=== PATIENT | female | born 1955 | race Caucasian/White ===

== ENCOUNTER → 2020-03-10 07:36 | Outpatient (CLI) | payer BC, SELFPAY ==
--- NOTE | 2020-03-10 | DI.MRI.S_ITS ---
PROCEDURE: MR LUMBAR SPINE WO/W CON INDICATIONS: Other intervertebral disc degeneration, lumbosacral region TECHNIQUE: Noncontrast sagittal T1 spin echo and T2 fast spin echo, sagittal STIR, axial T1 and T2 fast spin echo through the lumbar spine. In cases with scoliosis, additional coronal T2 fast spin echo may be performed. After the administration of contrast, sagittal and axial T1 spin echo with fat saturation through the lumbar spine. COMPARISON: [facility], MR, L-SPINE WITHOUT CONTRAST, 02/13/2013, 14:59. [facility], MR, L-SPINE WITHOUT CONTRAST, 12/31/2014, 11:20. [facility], MR, L-SPINE WITHOUT CONTRAST, 04/17/2017, 18:55. FINDINGS: Image quality: Excellent. Alignment and curvature: There is normal bony alignment. Marrow: Marrow is of normal overall signal. No acute vertebral body compression fractures. No suspicious marrow enhancement. Spinal cord: Conus medullaris terminates at the L1 level. Visualized spinal cord demonstrates normal signal, without suspicious enhancement. Paraspinous soft tissues: No paravertebral masses or abnormal enhancement. A 7 mm likely hemorrhagic cyst can be seen along the lateral aspect of the left kidney, without definite abnormal enhancement. Incidental note is made of a circumaortic left renal vein. T12-L1: Normal appearance. L1-L2: Normal appearance. L2-L3: No significant abnormality is seen. L3-L4: The disc height and disc signal are relatively well-preserved. Mild disc bulge is seen, with a mild central disc protrusion. There is mild to moderate right-sided and mild left-sided neural foraminal narrowing seen. When comparison is made with the prior examination, these findings are similar. L4-L5: The disc height is well-preserved. Loss of disc signal is seen at this level. Moderate generalized disc bulge is seen. Moderate facet joint hypertrophy is seen. There is at least moderate bilateral neural foraminal narrowing seen, right worse than left. There is a degree of compression seen upon the exiting nerve roots. Moderate central canal narrowing is seen. These imaging findings have progressed compared to the prior study. L5-S1: Moderate loss of disc height is seen. Loss of disc signal is seen. Reactive marrow endplate changes are seen, which are hyperintense on T1-weighted and T2-weighted imaging and most consistent with fatty metaplasia (Modic type II changes). Moderate disc bulge is seen, which is eccentric to the left. Mild to moderate facet hypertrophy is seen. Mild bilateral neural foraminal narrowing is seen. Minimal central canal narrowing is seen. Stable from the prior study. IMPRESSION: Lower lumbar spine degenerative changes are seen, which are mildly progressed at the L4-L5 level compared to 2017. Dictated by: Jef Lao M.D. on 03/10/2020 at 9:20 Approved by: Jef Lao M.D. on 03/10/2020 at 9:25
== END ==
PROVIDERS: PCP Specialist; Referring Provider Specialist; Visit Provider Specialist
DX: M51.37 Other intervertebral disc degeneration, lumbosacral region (principal); M47.816 Spondylosis without myelopathy or radiculopathy, lumbar region; M47.817 Spondylosis without myelopathy or radiculopathy, lumbosacral region
CPT/HCPCS: 72158; A9579

== ENCOUNTER 2021-02-06 10:37 | Day surgery (SDC) | payer BC, SELFPAY ==
--- NOTE | 2021-02-06 | PATH_ITS ---
[facility] Accession Number: [id number] . 01 Material submitted: . PART A: gastrointestinal site - RANDOM GASTRIC BIOPSIES PART B: esophagus, E-G Junction - GE JUNCTION BIOPSY . 01 Clinical history: . EGD/COLONOSCOPY . 02 Diagnosis: A. Random Stomach, Biopsies: Body-type mucosa with no diagnostic abnormality. Negative for Helicobacter organisms by immunohistochemistry. Negative for intestinal metaplasia. Negative for dysplasia or malignancy. . B. Gastroesophageal Junction, Biopsy: Squamous mucosa with no diagnostic abnormality. Intraepithelial eosinophils are not increased. A PAS stain is negative for fungal organisms. Negative for dysplasia and malignancy. [facility] 02/10/2021 1504 Local . 02 Electronically signed: . Lynn Sherwood MD, Pathologist NPI- [id number] . 01 Gross description: . Part A: RANDOM GASTRIC BIOPSIES: Received in formalin is 1 fragment(s) of malin, soft tissue measuring 0.2 x 0.2 x 0.2 cm submitted entirely in 1 cassette(s) Part B: GE JUNCTION BIOPSY: Received in formalin is 1 fragment(s) of malin, soft tissue measuring 0.2 x 0.2 x 0.1 cm submitted entirely in 1 cassette(s) /[facility] 02/07/2021 1906 Local . 02 Microscopic: . A. An immunohistochemical stain was performed to evaluate for Helicobacter organisms and is negative. The control stain showed appropriate reactivity. . B. An AB/PAS stain was performed to evaluate for intestinal metaplasia and fungal organisms, respectively. No columnar mucosa is identified in the initial levels and a PAS portion of the stain is negative for fungal organisms. The control stain showed appropriate reactivity. . . * This test was developed and its performance characteristics determined by [employer]. It has not been cleared or approved by the U.S. Food and Drug Administration. The FDA has determined that such clearance or approval is not necessary. This test is used for clinical purposes. It should not be regarded as investigational or for research. . 02 Pathologist provided ICD-10: D64.9 . 02 CPT . 552956, 107682, V59690, 827550 Performed at: [facility] [address] [id number] MD Luis Crockett MD Phone: [phone] Performed at: [address] [id number] MD Lynn Sherwood MD Phone: [phone]
[2021-02-06] MEDS: LACTATED RINGERS 1,000 ML 200 ML IV (10:58)
[2021-02-06 10:59] VITALS: BP 148/90; PULSE 68; RESP 16; TEMP 37.4; O2SAT 97; BMI 25.7
--- NOTE | 2021-02-06 11:37 | PM.PREOP ---
Pre-operative Note Interval Note History & Physical reviewed/Exam performed by Physician: Yes Changes to H&P: No
[2021-02-06] MEDS: LIDOCAINE 4% SOLN 50 ML 20 ML TOP (11:45)
[2021-02-06] MEDS: fentaNYL 250 MCG/5 ML INJ IV (11:46)
[2021-02-06] MEDS: MIDAZOLAM 5 MG/5 ML VIAL IV (11:47)
--- NOTE | 2021-02-06 12:27 | PM.OP.ENDO ---
Operative Date/Time/Diagnoses Date of procedure: 02/06/21 Time of procedure: 12:27 Pre-op diagnosis: Anemia Post-op diagnosis: same Procedure & Clinicians Study performed: Esophagoduodenoscopy Colonoscopy Same procedure as scheduled: Yes Indications: Anemia Surgeon: George Mcarthur Procedure Notes Procedure in detail: Medications: Conscious sedation using 6mg IV midazolam and 150mcg IV of fentanyl The history and physical was performed/updated and the patient is ASA class is *2. The procedure was discussed in detail with the patient. Potential risks complications including infection, bleeding, missed diagnosis, perforation, need for surgery, and were explained. Their questions were answered and informed consent was obtained. Patient was brought to the procedure room and placed standard monitoring equipment. The patient's vital signs were monitored continuously throughout the entire procedure. Prior to starting time-out was performed. The patient was placed in the left lateral recumbent position. Procedural sedation was administered. Patient placed in left lateral decubitus position. Time out was performed. Procedural sedation was administered with Versed and Fentanyl. A bite block was placed. the scope was inserted into the mouth and advanced through the esophagus and into the stomach. The pylorus was intubated and the duodenum was normal to the 2nd portion. The scope was retroflexed within the stomach and there was moderate hiatal hernia. MILD gastritis. The scope was withdrawn into the esophagus the Z line was seen at 40 cm from the incisions. There was inflamation at the GE junction biopsy biospy was taken. Stomach was desufflated and scope removed. Patient tolerated procedure well. Examination began with a thorough inspection of the perianal area there was no evidence of fissures, fistulae, external hemorrhoids or cutaneous malignancy. The colonoscopy scope was then placed into the anal canal and was advanced to the cecum, which was identified by the ileocecal valve, the appendiceal orifice and the confluence of the taenia. The scope was then slowly withdrawn examining colon thoroughly in all directions, irrigating it of any residual stool. No colonic masses or polyps Sigmoid diverticulosis The patient tolerated the procedure well. They will be discharged once criteria are met. The prep was of good/excellent quality. The withdrawl time was 7 minutes. The sedation time was 45 minutes. Specimen(s): other (gastric, GE junction) Complications: none Impression: gastitis, esophagitis Post-procedure Recommendations: Colonscopy in 10 years and Reflux diet Plan for aftercare: Omeprazole 40 mg BID Disposition: same day surgery
[2021-02-06 12:28] VITALS: BP 175/140; PULSE 60; RESP 13; TEMP 36.6; O2SAT 100
[2021-02-06 12:33] VITALS: BP 160/102; PULSE 68; RESP 17; O2SAT 99
[2021-02-06 12:38] VITALS: BP 159/99; PULSE 66; RESP 13; O2SAT 98
[2021-02-06 12:53] VITALS: BP 147/97; PULSE 64; RESP 13; O2SAT 98
== END 2021-02-06 13:04 | disposition home or self-care (01) ==
PROVIDERS: PCP Specialist; Referring Provider Surgery; Visit Provider Surgery
PROC: 0DJ08ZZ Inspection of Upper Intestinal Tract, Via Natural or Artificial Opening Endoscopic (ICD-10-PCS; CPT 43235; principal; 2021-02-06 11:30)
PROC: 0DJD8ZZ Inspection of Lower Intestinal Tract, Via Natural or Artificial Opening Endoscopic (ICD-10-PCS; CPT 45378; 2021-02-06 11:30)
DX: D64.9 Anemia, unspecified (principal); F10.20 Alcohol dependence, uncomplicated; K57.30 Diverticulosis of large intestine without perforation or abscess without bleeding; K29.50 Unspecified chronic gastritis without bleeding; K20.90 Esophagitis, unspecified without bleeding
CPT/HCPCS: 43239; 45378; 99152; 99153; J2250; J3010

== ENCOUNTER → 2022-12-10 11:03 | Outpatient (CLI) | payer BC, SELFPAY ==
--- NOTE | 2022-12-10 | DI.RAD.S_ITS ---
PROCEDURE: FL WRIST INJECTION MR/CT RT INDICATIONS: RIGHT WRIST PAIN COMPARISON: [facility], CR, XR WRIST 3+ VIEWS RIGHT, 11/22/2022, 17:15. [facility], WRIST INJECTION FOR MR/CT, 05/28/2011, 8:58. TECHNIQUE: After informed consent had been obtained, the wrist was examined fluoroscopically, and a site chosen for injection of the radiocarpal compartment from a dorsal approach. Skin was prepped and draped in a sterile fashion and 1% lidocaine infiltrated from the skin down to the articular surface. A hypodermic needle was then introduced into the articular space and a modest amount of contrast medium was instilled confirming intra-articular needle tip placement. This was followed by approximately 4 mL of a dilute gadolinium solution. Needle was removed and dressing was applied. The patient experienced no complications throughout the procedure and left the fluoroscopic suite in no apparent distress. FINDINGS: A single fluoroscopic spot image demonstrates intra-articular location to injected iodinated contrast. IMPRESSION: Successful fluoroscopic-guided administration of dilute Gadolinium solution for wrist MR arthrogram. Dictated by: David Sapp M.D. on 12/10/2022 at 12:18 Approved by: David Sapp M.D. on 12/10/2022 at 12:23
--- NOTE | 2022-12-10 | DI.MRI.S_ITS ---
PROCEDURE: MR WRIST RT W CON INDICATIONS: RIGHT WRIST PAIN TECHNIQUE: After the administration of 3-4 mL of dilute intra-articular Gadolinium contrast into the radiocarpal compartment, coronal T1 spin echo with fat saturation and T2 fast spin echo with fat saturation, axial T1 spin echo and T2 fast spin echo with fat saturation, sagittal T1 spin echo with and without fat saturation through the wrist. COMPARISON: [facility], CR, XR WRIST 3+ VIEWS RIGHT, 11/22/2022, 17:15. FINDINGS: Image quality: Excellent. Bones and cartilage: The carpal bones are normally aligned. No bone marrow contusions or fractures. No evidence for avascular necrosis. Wrist joint osteoarthritic changes are seen with joint space narrowing, subchondral sclerosis and cyst formation. Carpal ligaments: The scapholunate and lunotriquetral ligaments appear intact, without gadolinium extravasation into the mid-carpal compartment. The radioscaphocapitate and radiolunotriquetral ligaments appear intact. The arcuate ligament and short radiolunate ligament also appear normal. The dorsal intercarpal and radiotriquetral ligaments appear intact. On sagittal images, the pisohamate ligament appears intact. Triangular fibrocartilage complex: The triangular fibrocartilage disc, with its styloid and foveal lamina, appears intact. No gadolinium extravasation into the distal radioulnar joint. The adjacent meniscal homolog appears normal. The ulnar collateral ligament appears intact. The extensor carpi ulnaris tendon is normal in location and morphology. Tendons and soft tissues: The carpal tunnel structures appear normal, including the median nerve. The ulnar nerve appears normal within Guyon's canal. All six extensor tendon compartments demonstrate normal morphology, without pathologic tendon sheath fluid. No soft tissue ganglion cysts. IMPRESSION: 1. Right wrist joint osteoarthritis. No wrist fracture or dislocation. No evidence of avascular necrosis. 2. Intrinsic and extrinsic wrist ligaments are intact. No contrast is seen extravasation into mid-carpal compartment. 3. There is no evidence of triangular fibrocartilage tear. No contrast is seen extending into distal radial ulnar joint. 4. Extensor and flexor tendons are within normal limits. Dictated by: Matthew Gee M.D. on 12/10/2022 at 14:49 Approved by: Matthew Gee M.D. on 12/10/2022 at 14:57
== END ==
PROVIDERS: PCP Specialist; Referring Provider Orthopaedic Surgery; Visit Provider Orthopaedic Surgery
DX: S66.91 Strain of unspecified muscle, fascia and tendon at wrist and hand level (principal); M19.031 Primary osteoarthritis, right wrist
CPT/HCPCS: 20605; 73222; 77002

== ENCOUNTER → 2023-01-30 08:43 | Outpatient (CLI) | payer BC, SELFPAY ==
--- NOTE | 2023-01-30 | DI.MRI.S_ITS ---
PROCEDURE: MR KNEE RT WO CON INDICATIONS: Other tear of lateral meniscus, current injury, right knee TECHNIQUE: Noncontrast sagittal PD fast spin echo and T2 fast spin echo with fat saturation, sagittal 3-D FLASH with fat saturation; coronal T1 spin echo and PD fast spin echo with fat saturation, and axial PD fast spin echo with fat saturation through the knee. COMPARISON: [facility], CR, XR KNEE ARTHRITIC SERIES BI, 01/11/2023, 8:47. FINDINGS: Image quality: Good Menisci: Medial: Intact. Meniscocapusular junction maintained. Lateral: Horizontal tear of the mid body and anterior horn of the lateral meniscus, almost extending to the anterior root. Cruciate ligaments: Intact Medial structures: MCL: Intact Pes anserine tendons: Suspected ganglion cyst adjacent to the semi tendinosis. Semimembranosus: Intact Lateral structures: LCL: Intact Biceps femoris: Intact IT band: Intact Popliteus tendon: Suspected ganglion cyst adjacent to the popliteus tendon. Anterior structures: Extensor mechanism: Intact Fat pads: Mild edema in Hoffa's fat pad, nonspecific Medial retinaculum: Intact. Trochlea: Unremarkable morphology. Bone and joint: Bones: There is marrow edema in the inferior patella Cartilage: [id number] cartilage heterogeneity in the lateral compartment. Small areas of subchondral edema and fissuring in the central portion of the medial femoral condyle. Full-thickness cartilage defect in the inferior patellar median ridge, with underlying marrow edema. There is also full-thickness defect in the medial facet of the patella. Small amount of osteophyte formation in all 3 compartments. Joint space: Physiologic fluid. No measureable loose body. Mcrae's cyst: Small Mcrae's cyst. Soft tissues: No significant vascular or other soft tissue pathology. IMPRESSION: Intact cruciate ligaments. Horizontal tear of the body and anterior horn the lateral meniscus. Full-thickness cartilage defects in the patella, with moderate focal edema at the inferior median ridge. There is also central medial femoral condyle cartilage fissuring with mild subchondral edema. Dictated by: Jamaal Garrido M.D. on 01/30/2023 at 9:37 Approved by: Jamaal Garrido M.D. on 01/30/2023 at 9:43
== END ==
PROVIDERS: PCP Specialist; Referring Provider Orthopaedic Surgery; Visit Provider Orthopaedic Surgery
DX: S83.281A Other tear of lateral meniscus, current injury, right knee, initial encounter (principal); X58.XXXA Exposure to other specified factors, initial encounter
CPT/HCPCS: 73721

== ENCOUNTER → 2023-02-20 11:21 | Outpatient (CLI) | payer MEDICARE, OTHER, SELFPAY ==
--- NOTE | 2023-02-20 | DI.MRI.S_ITS ---
PROCEDURE: MR LUMBAR SPINE WO CON INDICATIONS: Low back pain, unspecified TECHNIQUE: Noncontrast sagittal T1 spin echo and T2 fast echo, sagittal STIR, and T2 fast spin echo through the lumbar spine. In cases with scoliosis, additional coronal T2 fast spin echo may be performed. COMPARISON: [facility], MR, MR LUMBAR SPINE WO/W CON, 03/10/2020, 8:15[facility], CR, SPINE LUMB MIN 4VW, 12/02/2014, 9:29. [facility], MR, L-SPINE WITHOUT CONTRAST, 04/17/2017, 18:55. FINDINGS: Image quality: Excellent. Alignment and Curvature: 5 lumbar type vertebral bodies are present by plain film. Alignment is normal. Bone Marrow: Marrow is of normal overall signal. There is mild wedging L1. There is ill-defined linear low T1/T2 signal intensity within the superior L1 endplate anteriorly. Moderate ill-defined T2 signal elevation within the superior L1 endplate. Moderate reactive signal within the endplates adjacent to the L5-S1 intervertebral disc. Mild reactive signal adjacent to the remaining lumbar and lower thoracic endplates. Spinal Cord: Conus medullaris terminates at the upper L2 level. Visualized cord demonstrates normal signal and size. Paraspinous Soft Tissues: No paravertebral masses. T12-L1: Mild disc height loss and desiccation. Mild diffuse disc bulge. Mild facet and ligamentum flavum hypertrophy. Mild canal stenosis. No foraminal stenosis. No significant change. L1-L2: Moderate disc desiccation. Mild diffuse disc bulge. Mild facet and ligamentum flavum hypertrophy. Mild canal stenosis. No foraminal stenosis. No significant change. L2-L3: Moderate disc desiccation. Mild diffuse disc bulge. Mild canal stenosis. No foraminal stenosis. No significant change L3-L4: Mild disc desiccation and diffuse disc bulge. Mild canal stenosis. Mild bilateral foraminal stenosis. No significant change. L4-L5: Moderate disc desiccation. Mild diffuse disc bulge. Mild facet and ligamentum flavum hypertrophy. Mild canal stenosis. Moderate bilateral foraminal stenosis. No significant change. L5-S1: Moderate disc height loss and desiccation. Mild diffuse disc bulge. Mild bilateral facet hypertrophy. No significant canal stenosis. Mild bilateral foraminal stenosis. No significant change. IMPRESSION: 1. Findings suggestive of a late subacute mild L1 compression fracture. 2. Multilevel degenerative disc and facet disease, as well as ligamentum flavum hypertrophy and epidural lipomatosis. 3. Mild multilevel canal stenoses. 4. Multilevel foraminal stenoses, worst at L4-L5 where there are moderate foraminal stenoses. Dictated by: Michelle Alva M.D. on 02/20/2023 at 11:59 Transcribed by: KASHIF on 02/20/2023 at 12:04 Approved by: Michelle Alva M.D. on 02/20/2023 at 15:36
== END ==
PROVIDERS: PCP Specialist; Referring Provider Anesthesiology Pain Medicine; Visit Provider Anesthesiology Pain Medicine
DX: M51.36 Other intervertebral disc degeneration, lumbar region (principal); M51.37 Other intervertebral disc degeneration, lumbosacral region; M48.061 Spinal stenosis, lumbar region without neurogenic claudication; M48.07 Spinal stenosis, lumbosacral region; M47.896 Other spondylosis, lumbar region; M47.897 Other spondylosis, lumbosacral region; M54.50 Low back pain, unspecified
CPT/HCPCS: 72148